=== PATIENT | female | born 1945 | race African-American/Black ===

== ENCOUNTER → 2019-12-15 | Outpatient (CLI) | payer OTHER ==
[~2019-12-15] VITALS: Ht 152.4 cm; Wt 72.6 kg
[~2019-12-15] MED LIST: ALLOPURINOL 10100 M3 PO; MELOXICAM15 MG PO; NABUMETONE 500500 M1 PO; PRINIVIL20 M1 PO; TRAMADOL 50 MG50 MG PO
[2019-12-15 12:37] VITALS: BP 186/82
--- NOTE | 2019-12-15 13:09 | NUR ---
Pain Clinic Assessment: 1. History of Osteoarthritis: LOW BACK History of Rheumatoid Arthritis: Not Applicable 2. Height: 5 ft. 0 in. 152.4 cm. Weight: 160.0 lb. oz. 72.576 kg. Patient's BMI: 31.2 3. Vital Signs: BP: 186/82 Pulse: 72 Resp: 16 Temp: 02 Sat: 100 ECG Mon: 4. Pain Intensity: 10 5. Fall Risk: Dizziness: N Needs help standing or walking: N Fallen in the last 3 months: N Fall risk comments: 6. Patient on Blood Thinner: None 7. History of Hypertension: Y 8. Opioid Therapy greater than 6 weeks: Y Opiate Contract Signed: 9. Risk Assessment Tool Provided: 10. Functional Assessment Tool: 11. Recreational Drug Use: Never Drug Type: Tobacco Use: Never Smoker Tobacco Type: Amount or Packs/day: How Many Years: Alcohol Use: No Frequency: Quant:
--- NOTE | 2019-12-21 11:30 | HPC ---
[facility] [place] [address] PAIN MANAGEMENT CONSULTATION Name: JOHN FUNES Room #: REG STEPHANIE Tessa#: [id number] Admission: 12/15/19 Attend Phys: Francisco Sheriff DO Discharge: Date of : 41 Report #: [id number] THIS REPORT FOR: cc: Ramakrishna Hess MD, Douglas James MD Johnson, James E. DO ~ DATE OF SERVICE: 12/15/2019 CHIEF COMPLAINT: Back pain, right lower extremity pain with paresthesias. HISTORY OF PRESENT ILLNESS: As you know, the patient is a pleasant 74-year-old female who reports a 1-year history of low back pain, right lower extremity pain with paresthesia that has progressively worsened. She is placing her current pain today at a level of 10/10. Pain is unrelated injury or trauma. She states she places heating pad over the area of discomfort and her symptoms do improve. She takes tramadol p.r.n. for pain control. She was seen by Neurosurgery and advised to trial conservative treatment options. She does have changes of the lumbar spine that may be consistent with the patient's symptoms as she does have a spondylolisthesis at L4-L5 with posterior bulging. She has severe central canal stenosis at the L4-L5 level secondary to the spondylolisthesis. The patient reports the pain is exacerbated with standing and walking, improves with sitting and lying down. She has been referred to our service to discuss treatment options for suspected lumbar radiculopathy. The patient indicates today pain is continuous and steady, describes the pain as aching, throbbing, sharp and stabbing. She places current pain score 10/10, daily average at 10/10, worst pain has been as 10/10. Again, the patient reports pain is exacerbated with walking, standing and utilizing the right lower extremity. Pain is improved with heating pad and pain medications. She has been referred to our service to discuss treatment options for suspected lumbar radiculopathy secondary to central canal stenosis. PAST MEDICAL HISTORY: 1. Hypertension. 2. Osteoarthritis. 3. Gout. PAST SURGICAL HISTORY: None. SOCIAL HISTORY: The patient denies tobacco, alcohol, IV or illicit drug use. 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 She is working, not receiving workmen's compensation, nor is she trying to obtain discrete benefits. She is accompanied by her granddaughter, who is present in room today. IMAGING: MRI lumbar spine obtained 09/17/2019 shows Grade 1 spondylolisthesis, [place] [address] PAIN MANAGEMENT CONSULTATION Name: JOHN FUNES Room #: REG CLI Tessa#: [id number] Admission: 12/15/19 Attend Phys: Francisco Sheriff DO Discharge: Date of : 43 Report #: [id number] L5 and S1 with moderate posterior disk bulging and severe apophyseal joint disease, severe central canal stenosis, moderate left neural foraminal stenosis, moderate circumferential L5-S1 disk bulge with moderate bilateral neural foraminal stenosis, mild broad-based L2-L3 and L3-L4 disk bulge. ALLERGIES: No known drug allergies. CURRENT MEDICATIONS: Lisinopril 20 mg once a day, meloxicam 15 mg once a day, allopurinol 100 mg per day, tramadol 50 mg every 8 hours p.r.n. for pain. PQRS: The patient has known arthritic changes of the lumbar spine, bilateral hips and knees. No rheumatoid arthritis. The patient is placing current pain score 10/10. She is not a fall risk, has not had a fall in last 3 months. She is not on blood thinners, but is treated for hypertension. She is on chronic opioids, but has a low opiate addiction potential based on our assessment tool. Pain impact score is 40/70 indicating moderate interference of daily activities secondary to pain. PHYSICAL EXAMINATION: VITAL SIGNS: Blood pressure 186/82, pulse 72, respiratory rate 16 and unlabored. The patient is 100% on room air. Height 5 feet tall, weight 160 pounds and BMI calculated 31.2. GENERAL: Well-developed, well-nourished, well-hydrated 74-year-old female appearing stated age. She is in mild distress. Placing current pain score 10/10. HEENT: Normocephalic, atraumatic. Pupils are equal, round, and reactive to light. Extraocular muscles are intact. NEUROLOGIC: Speech fluent. The patient deemed a good historian. LUNGS: Clear, no wheeze, rhonchi or rales. CARDIOVASCULAR: Regular. No appreciable gallop, no rub. ABDOMEN: Soft, obese, normoactive bowel sounds. EXTREMITIES: Show no clubbing, no cyanosis, no edema. MUSCULOSKELETAL: Lower extremity strength appears equal and symmetrical, 5/5. No focal neurologic deficits or muscle deficits. Sensory exam is intact to light touch from L1 through S2 dermatomes. Deep tendon reflexes 3+ on the right patella, 2+ over the rest of the lower extremities. 1+ left patellar and bilateral Achilles reflexes. Plantar reflexes are downgoing. Romberg sign is negative. Muscle bulk and tone is equal and symmetrical. Seated straight leg raising is negative. Supine straight leg raising is positive on the right. Gunnar's test is highly positive on the right. ASSESSMENT: 1. Lumbar radiculopathy. 2. Severe central canal stenosis of lumbar spine. 3. Displacement of lumbar intervertebral disk with radiculopathy. 4. Lumbosacral spondylosis with radiculopathy. [facility] [address] [place] [address] PAIN MANAGEMENT CONSULTATION Name: JOHN FUNES Room #: REG STEPHANIE OliviaNeena#: [id number] Admission: 12/15/19 Attend Phys: Francisco Sheriff DO Discharge: Date of : 43 Report #: [id number] 5. Neural foraminal stenosis of the lumbar spine. 6. Facet arthropathy of the lumbar spine. 7. Severe arthritic changes of the right hip. 8. Chronic intractable pain. PLAN: 1. Based on today's physical exam and history the patient has provided, the description the patient uses in regards to pain as well as location of symptoms, it would appear the patient is suffering from 2 different pain generators. It does appear the patient is suffering from lumbar radiculopathy secondary to central canal stenosis noted at the L4-L5 level, consistent with symptoms that she has been complaining of bilaterally. She is also suffering, what appears to be, severe right arthritic changes in the joint of the hip. Gait is extremely antalgic. She is favoring that right lower extremity mainly due to hip pain. She is complaining of pain upon standing and walking that involves the groin and the hip area, consistent with right hip pathology. I do not have imaging of this area, but given the physical exam, it is easy to diagnose a right hip pathology. I do believe there is an overlying lumbar radiculopathy contributing to overall symptoms. After a very long discussion about the physical exam and our presumptive diagnosis, we then discussed treatment options for both the etiologies. The following was discussed with the patient today. In regards to the patient's lumbar radiculopathy secondary to spinal stenosis, we discussed physical therapy, stretching exercises, core strengthening and weight loss as a treatment option. We discussed medication management utilizing neuropathic pain medication such as nortriptyline, amitriptyline, Cymbalta, Lyrica or gabapentin. We discussed lumbar epidural injection under fluoroscopic guidance to address lumbar radicular symptoms secondary to the spinal stenosis at the L4-L5 level. We also discussed surgical options with the patient including spinal cord stimulator therapy and traditional decompression. After reviewing the risks and benefits of all proposed treatment options, the patient chose to look forward to possible lumbar epidural injection under fluoroscopic guidance. The patient and I also discussed treatment options for right hip osteoarthritis. It would appear based on the physical exam she is suffering from severe arthritic changes. We would recommend treatment options that would include physical therapy, stretching exercises and strengthening techniques. We discussed medication management utilizing nonsteroidal anti-inflammatories for baseline pain control. We discussed intraarticular hip injections and ultimately surgical consultation and replacement via Orthopedics. After reviewing the risks and benefits of all proposed treatment options, the patient chose to begin with imaging of the right hip to determine the extent of arthritic changes to make a decision based on that finding. 2. The patient will be sent for x-ray imaging of the right hip. We will review those x-ray imagings once they are available. Given the findings on physical [address] [address] PAIN MANAGEMENT CONSULTATION Name: JOHN FUNES Room #: REG STEPHANIE Zarate#: [id number] Admission: 12/15/19 Attend Phys: Francisco Sheriff DO Discharge: Date of : 43 Report #: [id number] exam, I expect to see fairly severe arthritic changes and an orthopedic consult may be ultimately necessary. We will discuss this at her followup visit once the imaging has been completed. 3. Due to third green party payer restrictions, authorization had to be obtained before the patient could undergo any type of injection including intra-articular hip injection or lumbar epidural injection. We will begin the process of approval of these injections, so when the patient returns, she can determine which of the etiology she wants to address first. We will address right hip pathology if she continues to experience right hip and groin pain as she is doing today or we can discuss a lumbar epidural injection as she is experiencing more radicular component of symptoms. We will discuss this at followup visit. 4. We have made no changes in medication management at this time. Recommend the patient to continue current medical therapy as prior prescribed. 5. We will see the patient back in followup visit to review x-ray imaging and discuss interventional treatment options based on the findings of physical exam and that day. 6. We wish to thank Dr. Oliver for the opportunity to see this patient in consultation. We will keep you apprised of her response to treatment as we address both her right hip pathology and her lumbar radicular symptoms. Again, we wish to thank you for the opportunity to see this patient in consultation. <ELECTRONICALLY SIGNED> By: Francisco Sheriff DO 12/21/19 1130 [id number] Francisco Sheriff DO /nt
== END ==
LOC: PAIN 06:49
DX: M47.27 Other spondylosis with radiculopathy, lumbosacral region (principal); M51.16 Intervertebral disc disorders with radiculopathy, lumbar region; M25.551 Pain in right hip; M79.604 Pain in right leg; M48.061 Spinal stenosis, lumbar region without neurogenic claudication; R20.2 Paresthesia of skin; I10 Essential (primary) hypertension; M19.90 Unspecified osteoarthritis, unspecified site; M10.9 Gout, unspecified; Z79.899 Other long term (current) drug therapy

== ENCOUNTER → 2019-12-21 | Outpatient (CLI) | payer OTHER ==
[~2019-12-21] VITALS: Ht 152.4 cm; Wt 72.6 kg
[2019-12-21 10:49] VITALS: BP 172/78
--- NOTE | 2019-12-21 11:00 | NUR ---
Pain Clinic Assessment: 1. History of Osteoarthritis: LOW BACK History of Rheumatoid Arthritis: Not Applicable 2. Height: 5 ft. 0 in. 152.4 cm. Weight: 160.0 lb. oz. 72.576 kg. Patient's BMI: 31.2 3. Vital Signs: BP: 172/78 Pulse: 86 Resp: 20 Temp: 02 Sat: 100 ECG Mon: 4. Pain Intensity: 6 5. Fall Risk: Dizziness: N Needs help standing or walking: N Fallen in the last 3 months: N Fall risk comments: 6. Patient on Blood Thinner: None 7. History of Hypertension: Y 8. Opioid Therapy greater than 6 weeks: Y Opiate Contract Signed: 9. Risk Assessment Tool Provided: 10. Functional Assessment Tool: 11. Recreational Drug Use: Never Drug Type: Tobacco Use: Never Smoker Tobacco Type: Amount or Packs/day: How Many Years: Alcohol Use: No Frequency: Quant:
--- NOTE | 2019-12-22 13:21 | HPC ---
[facility] [place] [address] PAIN MANAGEMENT CONSULTATION Name: JOHN FUNES Room #: REG STEPHANIE OliviaYuanGonzalesYuan#: [id number] Admission: 12/21/19 Attend Phys: Francisco Sheriff DO Discharge: Date of : 43 Report #: [id number] THIS REPORT FOR: cc: Ramakrishna Hess MD, Douglas James MD Johnson, James E. DO ~ DATE OF SERVICE: 12/21/2019 REFERRING PHYSICIAN: Landry Oliver MD CHIEF COMPLAINT: Right hip pain and low back pain. HISTORY OF PRESENT ILLNESS: As you know, the patient is a 74-year-old female referred to our service to discuss possible treatment options for lumbar radiculopathy. When the patient was seen in consultation it appeared she was also suffering from osteoarthritic changes of the right hip. I did send the patient for x-ray imaging for which she returns to discuss the findings. She is indicating a pain level today of 6/10. She states pain is exacerbated with standing and walking, but improve with long distance ambulation. Pain is elicited also with any type of weightbearing and twisting of the right hip. Resolution of symptoms is noted almost completely with lying down and seated position. She returns today in followup visit to discuss treatment options. We have tentatively set an appointment for injection either to address right hip pain, which is a main component of the patient's symptoms or to discuss a lumbar epidural injection to address lumbar radicular symptoms that may be present. The patient denies new injury, trauma or any changes in medical history since our last visit. ALLERGIES: No reported drug allergies. CURRENT MEDICATIONS: Lisinopril 20 mg once a day, allopurinol 100 mg per day, tramadol 50 mg every 6 hours p.r.n. for pain, nabumetone 500 mg 3 times a day with meals. SOCIAL HISTORY: The patient denies tobacco, alcohol or IV illicit drug use. She is working, not receiving workmen's compensation, unaccompanied today. IMAGING: X-ray of the right hip shows severe degenerative changes and narrowing of the right hip joint with bone on bone appearance. No acute fracture or malalignment is noted. PQRS: The patient has known arthritic changes of the lumbar spine, bilateral hips and knees. No rheumatoid arthritis. She is placing pain intensity today around 6/10. She is not a fall risk, has not had a fall in last 3 months. She is not on blood thinners, but is treated for hypertension. She is on [address] [address] PAIN MANAGEMENT CONSULTATION Name: [facility] FUN[id number] Admission: 12/21/19 Attend Phys: Francisco Sheriff DO Discharge: Date of : 41 Report #: [id number] opioids, but has a low opiate addiction potential. Pain impact score is 40/70, moderate interference of daily activities secondary to pain. PHYSICAL EXAMINATION: VITAL SIGNS: Blood pressure 172/78, pulse 86, respiratory rate 20 and unlabored. The patient is 100% on room air. Height 5 feet tall, weight 160 pounds and BMI calculated 31.2. GENERAL: Well-developed, well-nourished, well-hydrated 74-year-old female appearing stated age, pain is rated today 6/10. HEENT: Normocephalic, atraumatic. Pupils equal, round. EXTREMITIES: Show no clubbing, no cyanosis, no edema. MUSCULOSKELETAL: Lower extremity strength appears symmetrical 5/5. No focal deficits noted or muscle atrophy noted in the lower extremities. Sensory exam is intact to light touch from L1 through S2 dermatomes. Plantar reflexes are downgoing. Romberg sign is negative. Seated straight leg raising is negative. Supine straight leg raising does have positive findings on the right. YAKOV's test is highly positive on the right. Moderately positive on the left. ASSESSMENT: 1. Severe osteoarthritic changes of the right hip. 2. Bone on bone appearance of arthritic changes on the right hip. 3. Lumbar radiculopathy. 4. Severe central canal stenosis of lumbar spine. 5. Displacement of lumbar intervertebral disk with radiculopathy. 6. Lumbosacral spondylosis with radiculopathy. 7. Neural foraminal stenosis of lumbar spine. 8. Facet arthropathy of the lumbar spine. 9. Chronic intractable pain. PLAN: 1. The patient returns today in followup visit where we have reviewed the x-ray imaging that we requested to be obtained at our last visit. Unfortunately, it does show severe degenerative changes of the right hip with bone on bone appearance. The patient will likely need to seek evaluation and treatment through Orthopedics in regards to possible total hip arthroplasty. We had discussed with the patient in our visit last week that we believe her symptoms were related to 2 different sources, one being the central canal stenosis of lumbar spine and the other being severe arthritic changes. Given her gait today the provocation factors of recurrent pain, I would suspect that the symptoms she is experiencing currently is due to the arthritic changes of the right hip. We have consented and we will perform a right intra-articular hip injection on the patient today. The patient was advised risks and benefits of an intraarticular hip injection. These risks include but are not necessarily limited to bleeding, bruising, infection, worsening pain, no relief of pain, temporary or permanent muscle [facility] [address] [place] [address] PAIN MANAGEMENT CONSULTATION Name: JOHN FUNES Room #: REG STEPHANIE Zarate#: [id number] Admission: 12/21/19 Attend Phys: Francisco Sheriff DO Discharge: Date of : 41 Report #: [id number] weakness, temporary or permanent nerve damage, possible joint destruction and . The patient states understood and wished to proceed. 2. The patient and I did discuss the possibility of addressing lumbar radicular symptoms secondary to spinal stenosis with the lumbar epidural injection. At present, her symptoms do not follow a dermatomal distribution and I believe it is more related to her current hip pain, though she may have underlying radicular symptoms due to spinal stenosis that may need to be addressed with lumbar epidural injection. We will discuss this at followup visit. 3. No medication changes made at today's visit. The patient will continue current medical therapy as previously prescribed. 4. We have provided the patient a release from work for today and tonight to recover from today's procedure. We recommend the patient go home, take it easy over the next 24 hours and return to work as able. PROCEDURE NOTE DESCRIPTION OF PROCEDURE: Right intraarticular hip injection under fluoroscopic guidance. After obtaining written consent, the patient was taken back to fluoroscopy suite, placed in a supine position. The image intensifier was then brought into position over the right hip and x-ray imaging was obtained. The area overlying the target site of injection was marked with a marker and then sterilely prepped with chlorhexidine. A 27-gauge 1-1/4 inch needle was then used to anesthetize the skin and subcutaneous tissue with 2 mL of 1% lidocaine. A 22-gauge 3-1/2 inch spinal needle with bent tip was advanced towards the proximal head of the right femur. The needle was advanced under fluoroscopic guidance towards the proximal head without complication. After reaching the femoral head on the right side, the needle was retracted approximately 1 mm and aspiration noted to be negative for heme. After negative aspiration for heme, 0.4 mL of Omnipaque injected demonstrating an excellent right hip arthrogram. After negative aspiration for heme, 5 mL of a solution containing 1 mL 40 mg per mL, 40 mg total triamcinolone along with 4 mL of bupivacaine 0.5% was injected slowly. Needle retracted detention, flushed with 0.5 mL of 1% lidocaine and removed. Sterile bandage placed over the injection site. There were no new motor deficits present in the lower extremities following procedure. The patient tolerated the procedure well, carefully escorted to recovery room in stable condition. No apparent complications. VAS before procedure rated at 6/10, VAS 5 minutes after procedure rated at 2-3/10. After meeting our discharge criteria, the patient discharged home. <ELECTRONICALLY SIGNED> By: Francisco Sheriff DO 12/22/19 1321 [id number] [id number] Francisco Sheriff DO /nt
== END | disposition home or self-care (01) ==
LOC: PAIN 06:55
PROVIDERS: ATTEND Anesthesiology Pain Medicine
DX: M16.11 Unilateral primary osteoarthritis, right hip (principal); M25.551 Pain in right hip; M51.16 Intervertebral disc disorders with radiculopathy, lumbar region; M48.061 Spinal stenosis, lumbar region without neurogenic claudication; M47.27 Other spondylosis with radiculopathy, lumbosacral region; M47.26 Other spondylosis with radiculopathy, lumbar region; G89.29 Other chronic pain; I10 Essential (primary) hypertension; M19.90 Unspecified osteoarthritis, unspecified site; Z98.890 Other specified postprocedural states; Z79.899 Other long term (current) drug therapy

== ENCOUNTER → 2020-04-11 | Outpatient (CLI) | payer OTHER ==
[~2020-04-11] VITALS: Ht 152.4 cm; Wt 74.8 kg
[~2020-04-11] MED LIST changes: +HYDROCHLOROTHIA25 M2 PO
--- NOTE | ~2020-04-11 | HPC ---
[address] [place] [address] PAIN MANAGEMENT CONSULTATION Name: JOHN FUNES Room #: REG STEPHANIE OliviaYuanGonzales.#: [id number] Admission: 04/11/20 Attend Phys: Francisco Sheriff DO Discharge: Date of : 41 Report #: [id number] THIS REPORT FOR: cc: Ramakrishna Hess MD, Douglas James MD Johnson, James E. DO ~ CC: Ramakrishna Sheriff DATE OF SERVICE: 04/11/2020 REFERRING PHYSICIAN: Dr. Landry Oliver CHIEF COMPLAINT: Right hip pain. HISTORY OF PRESENT ILLNESS: As you know, the patient is a pleasant 75-year-old female who was referred to our service, initially by her neurosurgeon to discuss low back pain and right hip pain. The patient underwent x-ray imaging at our initial visit of the right hip and was found to have severe arthritic changes. She returned on 12/21/2019, and underwent a right hip injection under fluoroscopic guidance to address this issue. The patient reports that with that injection, she received 75% improvement in overall pain. Unfortunately, her symptoms have begun to return. She is now placing pain score at 6/10. She states pain is exacerbated with standing and walking any distances, improves with rest and relaxation as well as the previous injection. She returns today for next in a series of right intra-articular hip injections. The patient denies injury or trauma that may have led to symptom reoccurrence. She states she has been very active since our hip had improved from a pain standpoint and believes this may be the source of recurrence. ALLERGIES: No known drug allergies. CURRENT MEDICATIONS: Lisinopril, allopurinol, tramadol, and nabumetone. SOCIAL HISTORY: The patient denies tobacco, alcohol, IV or illicit drug use. She is working, not receiving workmen's compensation, unaccompanied today. IMAGING: No new imaging available. PQRS: The patient has known arthritic changes of the lumbar spine, bilateral hips and knees. No rheumatoid arthritis. She is placing pain intensity 6/10. She is not a fall risk nor has she had a fall in last 3 months. She is not on blood thinners, but is treated for hypertension. She is on chronic opioids and has a low opiate addiction potential based on our assessment tool. Pain impact is 40 of 70, moderate interference of daily activities secondary to pain. [facility] [address] [place] [address] PAIN MANAGEMENT CONSULTATION Name: JOHN FUNES Room #: REG STEPHANIE Tessa#: [id number] Admission: 04/11/20 Attend Phys: Francisco Sheriff DO Discharge: Date of : 41 Report #: [id number] PHYSICAL EXAMINATION: VITAL SIGNS: Blood pressure 152/71, pulse 75, respiratory rate 16 and unlabored. The patient is 100% on room air. Height 5 feet tall, weight 164.8 pounds, BMI calculated at 32.2. GENERAL: Well-developed, well-nourished, well-hydrated 75-year-old female appearing stated age, pain is rated today at around 6/10. HEENT: Normocephalic, atraumatic. Pupils are equal, round and reactive. Speech is fluent. EXTREMITIES: Show no clubbing, no cyanosis. No appreciable edema. MUSCULOSKELETAL: Lower extremity strength is symmetrical 5/5, though there is noted deconditioning bilaterally. No muscle atrophy. No focal deficits. Seated straight leg raising is positive only for hip pain, no radicular component. Supine straight leg raising is also only positive for right hip pain, no radiation of symptoms. Gunnar's test is highly positive on the right. Moderately positive on the left. Gait is antalgic favoring right lower extremity. ASSESSMENT: 1. Severe osteoarthritic changes of the right hip. 2. Chronic lumbar radiculopathy. 3. Severe central canal stenosis of lumbar spine. 4. Displacement of lumbar intervertebral disk with radiculopathy. 5. Lumbosacral spondylosis with radiculopathy. 6. Neural foraminal stenosis of lumbar spine. 7. Facet arthropathy of the lumbar spine. 8. Chronic intractable pain. PLAN: 1. The patient has returned today in followup visit having noted 75% improvement in overall pain with the intraarticular hip injection provided at the last visit. We are pleased to see the patient has done well with that intraarticular hip injection, but unfortunately, her symptoms have begun to return. She returns today in followup visit requesting to undergo next in the series in hopes of building on success of previous intervention. The patient has been advised of the risks and the benefits of this procedure, states understood and wished to proceed. 2. No medication changes made at today's visit. The patient will continue current medical therapy as prior prescribed. 3. We will see the patient back in followup visit on an as needed basis for possible next in the series of intra-articular hip injections under fluoroscopic guidance. We did provide the patient a release from work for both today, [facility] [address] [place] [address] PAIN MANAGEMENT CONSULTATION Name: JOHN FUNES Room #: REG STEPHANIE DoveMaria Teresa#: [id number] Admission: 04/11/20 Attend Phys: Francisco Sheriff DO Discharge: Date of : 41 Report #: [id number] 04/11/2020 and 04/12/2020 to recover from the injection and allow for improved efficacy. She will return to work on . 04/13/2020. By: 1231 [id number] Francisco Sheriff DO /nt
--- NOTE | ~2020-04-11 | P ---
[facility] [place] [address] [place] [address] PROCEDURE REPORT Name: JOHN FUNES Room #: REG [facility]ITAL[facility].#: [id number] Admission: 04/11/20 Attend Phys: Francisco Sheriff DO Discharge: Date of : 41 Report #: [id number] THIS REPORT FOR: cc: Ramakrishna Hess MD, Douglas James MD Johnson, James E. DO ~ CC: Ramakrishna Sheriff DATE OF SERVICE: 04/11/2020 PROCEDURE PERFORMED: Right intra-articular hip injection under fluoroscopic guidance. DESCRIPTION OF PROCEDURE: After obtaining written consent, the patient was taken back to fluoroscopy suite, placed in a supine position. The image intensifier/fluoroscope was then brought into position over the right hip and x-ray imaging was obtained. The area overlying the target site of injection was prepped and draped sterilely with chlorhexidine, then marked with a sterile marker. A 27-gauge 1-1/4 inch needle was then used to anesthetize skin and subcutaneous tissue with 3 mL of 1% lidocaine. A 22-gauge 3-1/2 inch spinal needle with bent tip was advanced towards the proximal head of the right femur. Needle was advanced under fluoroscopic guidance towards the proximal head without complications. Needle was advanced into the joint and contact was made with the proximal head of the right femur. Needle was then retracted approximately 1 mm. After negative aspiration for heme, 0.6 mL of Omnipaque injected. An excellent right hip arthrogram was obtained. After negative aspiration for heme, 5 mL of a solution containing 1 mL 40 mg per mL, 40 mg total triamcinolone along with 4 mL bupivacaine 0.5% injected slowly. Needle retracted approximately half way, flushed with 1 mL of 1% lidocaine and removed. Sterile bandage placed over injection site. No new motor deficits present in the lower extremities following procedure. The patient tolerated the procedure well, carefully escorted to recovery room in stable condition. No apparent complications. After meeting discharge criteria, the patient discharged home. By: [id number] Francisco Sheriff DO /nt
[2020-04-11 13:43] VITALS: BP 152/71
--- NOTE | 2020-04-11 13:52 | NUR ---
Pain Clinic Assessment: 1. History of Osteoarthritis: LOW BACK History of Rheumatoid Arthritis: Not Applicable 2. Height: 5 ft. 0 in. 152.4 cm. Weight: 164.8 lb. oz. 74.753 kg. Patient's BMI: 32.2 3. Vital Signs: BP: 152/71 Pulse: 75 Resp: 16 Temp: 02 Sat: 100 ECG Mon: 4. Pain Intensity: 6 5. Fall Risk: Dizziness: N Needs help standing or walking: N Fallen in the last 3 months: N Fall risk comments: 6. Patient on Blood Thinner: None 7. History of Hypertension: Y 8. Opioid Therapy greater than 6 weeks: Y Opiate Contract Signed: 9. Risk Assessment Tool Provided: 10. Functional Assessment Tool: 11. Recreational Drug Use: Never Drug Type: Tobacco Use: Never Smoker Tobacco Type: Amount or Packs/day: How Many Years: Alcohol Use: No Frequency: Quant:
== END | disposition home or self-care (01) ==
LOC: PAIN 07:02
PROVIDERS: ATTEND Anesthesiology Pain Medicine
DX: M25.551 Pain in right hip (principal); M16.11 Unilateral primary osteoarthritis, right hip; M48.061 Spinal stenosis, lumbar region without neurogenic claudication; M51.16 Intervertebral disc disorders with radiculopathy, lumbar region; M47.27 Other spondylosis with radiculopathy, lumbosacral region; M47.26 Other spondylosis with radiculopathy, lumbar region; G89.29 Other chronic pain; Z98.890 Other specified postprocedural states; Z79.899 Other long term (current) drug therapy

== ENCOUNTER → 2020-06-13 | Outpatient (CLI) | payer OTHER ==
[~2020-06-13] VITALS: Ht 152.4 cm; Wt 76.2 kg
[~2020-06-13] MED LIST changes: +HYDROCODON-ACE1 EAC7 PO; +NABUMETONE 500500 M2 PO
--- NOTE | ~2020-06-13 | HPC ---
[facility] [place] [address] [place] [address] PAIN MANAGEMENT CONSULTATION Name: JOHN FUNES Room #: REG STEPHANIE Aburto.#: [id number] Admission: 06/13/20 Attend Phys: Francisco Sheriff DO Discharge: Date of : 41 Report #: [id number] THIS REPORT FOR: cc: Ramakrishna Hess MD, Douglas James MD Johnson, James E. DO ~ CC: Ramakrishna Oliver MD DATE OF SERVICE: 06/13/2020 REFERRING PHYSICIAN: Landry Oilver MD CHIEF COMPLAINT: Right hip pain. HISTORY OF PRESENT ILLNESS: As you know, the patient is a very pleasant 75-year-old female who unfortunately suffers from progressively worsening right hip pain. Recent x-ray imaging showed "[id number]" findings of the acetabulum and femoral head. She underwent an intra-articular right hip injection at her last visit, which provided only transient improvement in symptoms. Unfortunately, these have even lost efficacy. She returns today to discuss treatment options. She is placing pain today at about to 9-10/10 depending on activity. ALLERGIES: No reported drug allergies. CURRENT MEDICATIONS: Lisinopril, allopurinol, tramadol and nabumetone. SOCIAL HISTORY: The patient denies tobacco, alcohol, IV or illicit drug use. She is working, not receiving workmen's compensation, unaccompanied today. IMAGING: X-ray of the right hip obtained 12/15/2019 shows severe degenerative narrowing of the right hip joint with [id number] appearance. PQRS: The patient has known arthritic changes of the lumbar spine, bilateral hips, right greater than left. She does not suffer from rheumatoid arthritis. She is placing current pain score 9-10/10. She is not a fall risk, has not had a fall in last 3 months. She is not on blood thinners, but is treated for hypertension. She is on chronic opioids, has a low opiate addiction potential. Pain impact today is rated at 40/70, moderate interference to severe interference of daily activities secondary to pain. PHYSICAL EXAMINATION: VITAL SIGNS: Blood pressure 153/63, pulse is 83, respiratory rate 16 and unlabored. The patient is 98% on room air. Height 5 feet tall, weight [address] [address] PAIN MANAGEMENT CONSULTATION Name: JOHN FUNES Room #: REG [facility]..#: [id number] Admission: 06/13/20 Attend Phys: Francisco Sheriff DO Discharge: Date of : 41 Report #: [id number] pounds, BMI calculated 32.8. GENERAL: Well-developed, well-nourished, well-hydrated 75-year-old female appearing stated age. Pain is rated at 9-10/10. HEENT: Normocephalic, atraumatic. Pupils equal, round and reactive. Speech fluent. EXTREMITIES: Show no clubbing, no cyanosis, no edema. MUSCULOSKELETAL: Lower extremity strength is symmetrical 5/5, intact to light touch from L1 through S2 dermatomes. Seated straight leg raising negative. Supine straight leg raising is positive only for right hip pain. No radicular component. Gunnar's test is severely positive right. Moderately positive on the left. Ankle clonus negative. Babinski is negative. ASSESSMENT: 1. Syks-au-hkwo appearance with arthritic changes of the right hip. 2. Chronic lumbar radiculopathy. 3. Severe central canal stenosis of the lumbar spine. 4. Displacement of lumbar intervertebral disk with radiculopathy. 5. Lumbosacral spondylosis with radiculopathy. 6. Neural foraminal stenosis of the lumbar spine. 7. Facet arthropathy of the lumbar spine. 8. Chronic intractable pain. PLAN: 1. The patient has returned today in followup visit indicating that the most recent intra-articular hip injection provided excellent benefit initially, but unfortunately lost efficacy quite quickly. This would be a clear sign that continuing injections into the right hip would not be recommended long-term for treatment. I do feel given the findings on the x-ray imaging and the decreasing functionality of the patient that total hip arthroplasty would be necessary. We have discussed this with the patient in the past and did have a similar discussion today. After this long discussion, the patient was agreeable to at least have a consultation with Orthopedics. 2. We will be sending the patient to see Dr. Ronnell Kendrick at [facility]. The patient will take all available information with her including x-ray imaging of the right hip obtained in September. This will help facilitate the consultation and discussion of treatment options. The patient was given the referral in written form today. She will follow up with Dr. Kendrick as quickly as possible. We have tentatively had the patient scheduled with Dr. Kendrick on 06/19/2020 after transmitting all information to his offices in regards to the patient today. 3. We will start the patient on hydrocodone 5/325 one tab p.o. q. 8 hours p.r.n. for pain. I have given the patient #90 tablets. Prescription was provided to the patient in digital form, sent to her local pharmacy. We have taken the liberty of undergoing prior authorization and received authorization for a full prescription of 90 tablets to be given to the patient to take for pain control. She will continue the medication as directed, not to take the [facility] [place] [address] [place] [address] PAIN MANAGEMENT CONSULTATION Name: JOHN FUNES Room #: REG STEPHANIE Zarate#: [id number] Admission: 06/13/20 Attend Phys: Francisco Sheriff DO Discharge: Date of : 41 Report #: [id number] medication prophylactically. She will watch for side effects of sleepiness, disorientation, confusion, mental slowing and constipation with its use. If she notes these side effects, discontinue immediately. 4. We will see the patient back in followup visit on an as needed basis. We wish her luck with the surgical option to address her right hip pain. We will be available to see her back in followup visit. By: [id number] Francisco Sheriff DO /nt
[2020-06-13 12:42] VITALS: BP 153/63
--- NOTE | 2020-06-13 12:54 | NUR ---
Pain Clinic Assessment: 1. History of Osteoarthritis: LOW BACK RIGHT HIP History of Rheumatoid Arthritis: Not Applicable 2. Height: 5 ft. 0 in. 152.4 cm. Weight: 168.0 lb. oz. 76.204 kg. Patient's BMI: 32.8 3. Vital Signs: BP: 153/63 Pulse: 83 Resp: 16 Temp: 02 Sat: 98 ECG Mon: 4. Pain Intensity: 9-10 5. Fall Risk: Dizziness: N Needs help standing or walking: N Fallen in the last 3 months: N Fall risk comments: 6. Patient on Blood Thinner: None 7. History of Hypertension: Y 8. Opioid Therapy greater than 6 weeks: Y Opiate Contract Signed: 9. Risk Assessment Tool Provided: 10. Functional Assessment Tool: 11. Recreational Drug Use: Never Drug Type: Tobacco Use: Never Smoker Tobacco Type: Amount or Packs/day: How Many Years: Alcohol Use: No Frequency: Quant:
== END ==
LOC: PAIN 06:57
PROVIDERS: ATTEND Anesthesiology Pain Medicine
DX: M51.16 Intervertebral disc disorders with radiculopathy, lumbar region (principal); M48.061 Spinal stenosis, lumbar region without neurogenic claudication; M47.27 Other spondylosis with radiculopathy, lumbosacral region; G89.29 Other chronic pain; Z79.899 Other long term (current) drug therapy